=== PATIENT | male | born 1955 | race Caucasian/White ===

== ENCOUNTER → 2016-03-23 | Outpatient (CLI) | payer BC | LOC: GMAB 11:12 | PROVIDERS: ATTEND Family Medicine | DX: Z00.00 Encounter for general adult medical examination without abnormal findings (principal) ==

== ENCOUNTER → 2017-05-05 | Outpatient (CLI) | payer BC | LOC: GMAB 10:25 | PROVIDERS: ATTEND Family Medicine | DX: Z00.00 Encounter for general adult medical examination without abnormal findings (principal) ==

== ENCOUNTER → 2017-06-01 | Outpatient (CLI) | payer BC ==
--- NOTE | 2017-06-02 08:26 | US ---
EXAM DESCRIPTION: Carotid Duplex: ULTRASOUND. CLINICAL HISTORY: OCCLUSION AND STENOSIS OF BILATERAL CAROTID ARTERIES COMPARISON: None. TECHNIQUE: Transcutaneous scanning utilizing 2-dimensional and Doppler modes to evaluate the bilateral carotid systems and vertebral arteries. Percentage of diameter of stenosis or no stenosis recorded will be based upon NASCET criteria. FINDINGS: Peak systolic/end diastolic (CM-Sec) CCA Right 64/19 Left 82/21. ICA Right proximal 47/13, distal 46/17. Left proximal 38/18, Distal 53/23. Vertebral Right not arterial flow Left 38/17. ECA (PS Only) Right 100 left 86. ICA/CCA peak systolic ratio: Right 0.7 Left 0.7 ICA/CCA end diastolic ratio: Right 0.7 Left 1.1 Vertebral arteries: antegrade flow in the left vertebral artery. Venous flow noted in the vicinity of the right vertebral artery. Comments: Atherosclerotic calcification in the bilateral common carotid bifurcations and proximal ICAs. Area stenosis right mid bulb 44%; diameter stenosis 50%. Area stenosis right proximal ICA 31%; Diameter stenosis 33%. Area stenosis left common carotid bulb 20%; diameter stenosis 21%. Area stenosis proximal left ICA 11%; diameter stenosis 14%. Spectral broadening bilateral proximal ICAs. IMPRESSION: 1. Doppler evaluation of the bilateral carotid systems and vertebral arteries shows no hemodynamically significant stenoses. 2. No significant amount of plaque seen in the carotid arteries bilaterally. Left vertebral artery showed antegrade-cephalad flow. No arterial flow in the vicinity of the right vertebral artery, only venous flow. Electronically signed by: Joe Bragg MD 06/02/2017 8:24 AM CDT
== END | disposition home or self-care (01) ==
LOC: US 08:13
PROVIDERS: ATTEND Family Medicine
DX: I65.23 Occlusion and stenosis of bilateral carotid arteries (principal)

== ENCOUNTER → 2018-03-28 | Outpatient (CLI) | payer BC | LOC: GMAE 13:07 | PROVIDERS: ATTEND Family Medicine | DX: Z00.00 Encounter for general adult medical examination without abnormal findings (principal) ==

== ENCOUNTER → 2019-05-22 | Outpatient (CLI) | payer SELFPAY | LOC: GMAE 10:53 | PROVIDERS: ATTEND Family Medicine | DX: Z00.00 Encounter for general adult medical examination without abnormal findings (principal) ==